=== PATIENT | female | born 1990 | race Caucasian/White ===

== ENCOUNTER 2019-04-04 06:34 | Emergency (ER) | payer SELFPAY ==
[2019-04-04] VITALS (35 sets, daily range): BP systolic 109–153; BP diastolic 67–99; PULSE 80–135; RESP 13–25; TEMP 36.6; O2SAT 96–100
[2019-04-04 07:08] LABS: Bilirubin Negative (Negative); Blood Negative (Negative); Clarity Clear (Clear); Glucose Negative (Negative); Ketones Negative (Negative); Leukocyte Esterase Negative (Negative); Nitrite Negative (Negative); Urobilinogen 0.2 EU/dL (Up TO 0.2)
--- NOTE | 2019-04-04 07:08 | NUR.NOTE ---
Nursing Note:Report to ALENA Smyth
[2019-04-04 07:10] LABS: Abs Immature Grans 0.05 k/cumm (0.0-0.09); Absolute Basophil Count 0.04 k/cumm (0.0-0.2); Absolute Lymphocyte Count 4.52 k/cumm (1.2-3.4); Absolute Monocyte Count 0.64 k/cumm (0.11-0.7); Basophils % 0.3; Eosinophils % 1.9; HGB 14.8 g/dL (12.0-15.5); Immature Grans % 0.4; Lymphocytes % 38.2; Mean Corp. HGB Concentration 33.6 g/dL (32.0-36.0); Mean Corpuscular Volume 83.2 fL (80-95); Mean Platelet Volume 10.4 fL (8.0-11.0); Monocytes % 5.4; Neutrophils % 53.8; Platelet Count 339 x1000/uL (130-400); RBC 5.29 m/cumm (4.00-5.20); RBC Distribution Width 13.4 % (11.7-14.6); White Blood Cell Count 11.83 k/cumm (4.4-10.8)
--- NOTE | 2019-04-04 07:15 | W.ED.GENAD ---
Discharge Plan Disposition Patient Disposition: HOME Condition: Improving Discharge Details Chief Complaint: Chest/Rib Clinical Impression: Thickening of wall of gallbladder with pericholecystic fluid Primary Care Provider: None,None ED Provider: Tawnya Kirby Home Meds and New Rx's Prescriptions: New amoxicillin-pot clavulanate [Augmentin] 875-125 mg tablet 1 tab PO BID 7 Days Qty: 14 RF: 0 Discharge Instructions Instructions: Cholecystitis (ED), Biliary Colic (ED) Additional Instructions: Your gallbladder was noted to be thickened with fluid around it. This can be signs indicating an infection of her gallbladder. As your pain is improving and your lab work is reassuring, you may be able to have a possible scheduled removal of your gallbladder after evaluation by surgery. Alternate Tylenol and Motrin as needed and directed for pain. Follow a low-fat diet over the next few days. Return to the hospital Saturday as directed by the radiology department for your gallbladder ultrasound which has been ordered. Follow-up with general surgeon Dr. Rubi on Saturday for further evaluation. Return immediately to the emergency department at any time if you develop fever, worsening pain, vomiting. Referrals: Lesly Rubi MD [ [facility] STAFF PHYSICIAN] - Discharge Data Discharge Date/Time-TO BE ENTERED AT DEPARTURE: 04/04/19 10:30 Discharge Physician: Tawnya Kirby Medical Decision Making <Tyler Lai DO - Last Filed: 04/05/19 01:23> This is a 28-year-old female no significant past medical history who presents today for evaluation of chest pain and epigastric pain. She has no personal history of blood clots or she does have a family history of it. No recent long trips or estrogen. Pain is tight, pressure-like, pleuritic component for her chest. Epigastric pain that is present seems to be slightly unrelated, it is reproducible on exam. Sharp in nature. Patient is tachycardic and with her family history of blood clots, d-dimer will be ordered to evaluate further. EKG does show Q3/T3. Symptoms and consistent with ACS. We will also treat with a GI cocktail for potential gastric ulcer/gastritis that could be causing her epigastric symptoms. Patient wants something for pain at this point. Will rehydrate and reassess. 7:54 AM Patient's laboratory work-up is returned relatively unremarkable. Patient has mild improvement of her symptoms of GI cocktail. Patient's d-dimer was negative, however on reassessment the patient still has continued pleuritic pain, and remains tachycardic. The family history of PE I am concerned for potential other concerning underlying pathology. We will get a CTA for further assessment. Case was discussed with my colleague Dr. Tawnya Kirby. She will this patient over her signout, please refer to her documentation for reassessment after imaging. EKG 6: 53 Rate 116, intervals normal, sinus tachycardia, inverted T wave in V1, and V3. Small Q wave is also noted in lead III. <Tawnya Kirby, DO - Last Filed: 04/05/19 16:05> 0800 --please see Dr. Lai's note for initial presentation and plan. 28-year-old female with no significant past medical history and a family history of blood clotting disorder presented with 4 days of right upper quadrant abdominal pain now resolved, and substernal chest pain and epigastric pain since last night. Patient had cardiac work-up done on arrival. EKG noted a rate of 116, sinus, with S1Q3T3 on EKG, but no acute ST ischemic changes. White blood cell count 11.83, otherwise labs unremarkable. Troponin negative. UA and ucg negative. Case endorsed with plan to follow-up on CT imaging to rule out PE. 09 --CT negative for PE but does note pericholecystic fluid and thickened gallbladder concerning for acute cholecystitis. Recommend gallbladder US. US not available on weekend day. 919 --patient reassessed -patient states pain improved after GI cocktail. Patient is tender in the epigastrium and right upper quadrant. Will call surgery. 45 -- D/w Dr. Rubi - as pain now controlled, wbc only minimally elevated and pt hemodynamically stable, ok to discharge to home with p.o. antibiotics with plan for follow-up on Saturday and possible elective cholecystectomy. Patient is agreeable to this plan. Patient given a dose of Toradol prior to discharge. She was given a prescription for Augmentin. She was placed on surgery follow-up list. A gallbladder US was ordered as outpatient for Saturday. She was advised to follow a low-fat diet, call surgery on Saturday for reevaluation and to return here at any time if symptoms worsen. Medical Records Medical records reviewed: Yes I reviewed the patient's medical records. Imaging Data Radiologic Study: Radiologist's impression: XR Chest, 2 Views Exam date and time: 04/04/2019 7:22 AM Age: 28 years old Clinical history: Shortness of breath TECHNIQUE: Imaging protocol: XR of the chest Views: 2 views. COMPARISON: No relevant prior studies available. FINDINGS: Lungs: Unremarkable. No consolidation. Pleural space: Unremarkable. No pleural effusion. No pneumothorax. Heart/Mediastinum: Unremarkable. No cardiomegaly. Bones/joints: Unremarkable. IMPRESSION: No acute findings. CT Angiography Chest With Contrast Exam date and time: 04/04/2019 7:54 AM Age: 28 years old Clinical history: Patient HX: Mid sternal chest pain, ruq pain, epigastric pain, pain since last night. Patient sts heavy feeling in chest. No recent surgeries. TECHNIQUE: Imaging protocol: Computed tomographic angiography of the chest with intravenous contrast. 3D rendering: MIP reconstructed images were created and reviewed. Radiation optimization: All CT scans at this facility use at least one of these dose optimization techniques: automated exposure control; mA and/or kV adjustment per patient size (includes targeted exams where dose is matched to clinical indication); or iterative reconstruction. Contrast material: OMNIPAQUE 350; Contrast volume: 75 ml; Contrast route: IV; COMPARISON: CR XR CHEST 2V PA LATERAL 04/04/2019 7:20 AM FINDINGS: Pulmonary arteries: No evidence of pulmonary embolus to the segmental level. Aorta: No aneurysm of the aorta. No dissection of the aorta. Lungs: Unremarkable. No consolidation. No masses. Pleural space: Unremarkable. No pneumothorax. No pleural effusion. Heart: Unremarkable. No cardiomegaly. No pericardial effusion. Gallbladder and bile ducts: Pericholecystic fluid and gallbladder wall thickness. Recommend gallbladder ultrasound for further evaluation. Lymph nodes: Unremarkable. No enlarged lymph nodes. Bones/joints: Unremarkable. No acute fracture. Soft tissues: Unremarkable. IMPRESSION: 1. No evidence of pulmonary embolus to the segmental level. 2. No aneurysm of the aorta. 3. No dissection of the aorta. 4. Pericholecystic fluid and gallbladder wall thickness. Recommend gallbladder ultrasound for further evaluation. HPI <Tyler Lai DO - Last Filed: 04/05/19 01:23> General Date/Time Provider Initiated Documentation: 04/04/19 06:40. HPI Narrative: This is a 28-year-old female with no significant past medical history who presents today for evaluation of chest pain chest tightness epigastric pain. Patient states that last 12 hours she has had tightness in the center of her chest, mild pleuritic chest pain, and epigastric pain. She has had no vomiting or diarrhea. She denies any numbness tingling or weakness. She denies any cough. The pressure and tightness started as a significant pressure and weight, and is transition to the current tightness and pleuritic pain. Epigastric pain described as sharp and stabbing in the epigastric region. Patient denies any recent long trips, surgeries or procedures. She denies any hemoptysis. She does not take exogenous estrogen. She does admit to a past family history of blood clots, but none for herself. She denies any aggravating or relieving factors. She has no other complaints at this time. Related Data Home Medications Medication Instructions Recorded Confirmed amoxicillin-pot clavulanate 1 tab PO BID 7 Days #14 tab 04/04/19 [Augmentin] Previous Rx's Medication Instructions Recorded amoxicillin-pot clavulanate 1 tab PO BID 7 Days #14 tab 04/04/19 [Augmentin] Allergies Allergy/AdvReac Type Severity Reaction Status Date / Time No Known Drug Allergies Allergy Unverified 12/01/14 10:41 General Stated Complaint: Chest/Rib FLORENTINO: 3 Review of Systems <Tyler Lai DO - Last Filed: 04/05/19 01:23> All systems reviewed & are unremarkable except as noted in HPI and below PFS <Tyler Lai DO - Last Filed: 04/05/19 01:23> Social History Smoking/Tobacco Use Status: Never Alcohol Intake: never Drug use: Never Do you feel safe at home: Yes Do you feel safe in your relationship?: Yes Exam <Tyler Lai DO - Last Filed: 04/05/19 01:23> Narrative Exam Narrative: 1.Const: Well-nourished, Well-developed, appearing stated age 2.Eyes: PERRL, no conjunctival injection, and symmetrical lids. 3.ENT: Atraumatic external nose and ears. Moist MM. Neck: Symmetric, trachea midline, No thyromegaly. 4.CVS: +S1/S2, No murmurs or gallops. Peripheral pulses 2+ and equal in all extremities. Brisk capillary refill in all extremities. 5.RESP: Unlabored respiratory effort. Clear to auscultation bilaterally. No wheezes rales or rhonchi 6.GI: Soft, Nondistended, No hepatosplenomegaly. No guarding or rebound. Mild epigastric tenderness. 7.MSK: Normocephalic/Atraumatic, Extremities w/o deformity or ttp No cyanosis or clubbing, Normal movement of all extremities. No calf tenderness. 8.Skin: Warm, Dry. No rashes or lesions. 9.Neuro: respiratory care assistant II-XII grossly intact. Sensation grossly intact, no focal neurologic deficits. 10.Psych: (AAO) x3. Appropriate mood and affect Course <Tyler Lai DO - Last Filed: 04/05/19 01:23> Vital Signs Vital signs: Vital Signs Temperature 36.6 C 04/04/19 06:40 Pulse 135 H 04/04/19 06:40 Respiratory Rate 20 04/04/19 06:40 Blood Pressure 138/99 H 04/04/19 06:40 Pulse Oximetry 98 04/04/19 06:40 Temperature 36.6 C 04/04/19 06:40 Temperature Source Rectal 04/04/19 06:40 Pulse 135 H 04/04/19 06:40 Respiratory Rate 20 04/04/19 06:40 Respiratory Effort 04/04/19 06:44 Blood Pressure 138/99 H 04/04/19 06:40 Pulse Oximetry 98 04/04/19 06:40 Oxygen Delivery Method Room Air 04/04/19 06:40 Oxygen Flow Rate 0 04/04/19 06:40 Pain Level 7 04/04/19 06:40 Sign Out <Tyler Lai DO - Last Filed: 04/05/19 01:23> Sign Out Data: Sign Out Comment: Pending CT results and reassessment. Last updated by Tyler Lai DO at 04/04/19 08:30
[2019-04-04 07:18] LABS: Absolute Eosinophil Count 0.22 k/cumm (0.0-0.7); Absolute Neutrophil Count 6.36 k/cumm (1.2-6.7)
--- NOTE | 2019-04-04 07:20 | DI.RAD_ITS ---
EXAM: XR CHEST 2V PA LATERAL INDICATION: central chest pain and SOB. COMPARISON: No exams were available for comparison TECHNIQUE: 2D digital imaging was performed. FINDINGS: The cardiac and mediastinal contours have a normal appearance. The lungs are well inflated and clear . No infiltrate, effusion or pneumothorax is seen. The spine and ribs are unremarkable as visualize d. IMPRESSION: Negative chest x-ray.
[2019-04-04 07:25] LABS: PTT Activated 26.2 sec (21.0-31.4); Prothrombin Time 9.9 sec (9.3-11.0)
[2019-04-04 07:38] LABS: ALT 12 U/L (14-59); AST 6 U/L (15-37); Alkaline Phosphatase 59 U/L (46-116); Anion Gap 11.5 mmol/L (3-11); BUN 15 mg/dL (7-18); Bilirubin, Total 0.2 mg/dL (0.2-1.0); CO2 24.5 mmol/L (21.0-32.0); CREATININE 0.74 mg/dL (0.55-1.02); Calcium 8.6 mg/dL (8.5-10.1); Chloride 103 mmol/L (98-107); Glucose 100 mg/dL (74-106); Lipase 159 U/L (73-393); NT-proBNP 20 pg/mL (<300); Potassium 3.4 mmol/L (3.5-5.1); Sodium 139 mmol/L (136-145); Total Protein 7.5 g/dL (6.4-8.2)
[2019-04-04 07:44] LABS: D-Dimer 217 ng/mlFEU (<500)
[2019-04-04 07:48] LABS: Troponin I < 0.05 ng/Ml (<0.06)
--- NOTE | 2019-04-04 08:27 | DI.VRAD_ITS ---
PROCEDURE INFORMATION: Exam: XR Chest, 2 Views Exam date and time: 04/04/2019 7:22 AM Age: 28 years old Clinical history: Shortness of breath TECHNIQUE: Imaging protocol: XR of the chest Views: 2 views. COMPARISON: No relevant prior studies available. FINDINGS: Lungs: Unremarkable. No consolidation. Pleural space: Unremarkable. No pleural effusion. No pneumothorax. Heart/Mediastinum: Unremarkable. No cardiomegaly. Bones/joints: Unremarkable. IMPRESSION: No acute findings. Dictated and Authenticated by: Michelle Gabriel MD. Ordering:YVONNE Scott MD
[2019-04-04] MEDS: Normal Saline 1,000 ML 1000 ML IV (08:37)
[2019-04-04] MEDS: Omnipaque 350 MG/ML 100 ML BTL IJ (08:55)
--- NOTE | 2019-04-04 08:55 | DI.CT_ITS ---
EXAM: CT CHEST PE CTA . CLINICAL HISTORY: Pleuritic/epigastric pain, rule out PE TECHNIQUE: Axial CT angiography was performed with multi-slice acquisition and multi-planar and/or 3 D reconstructions. 75 cc's of Omnipaque 350 were used. COMPARISON: No exams were available for comparison FINDINGS: The exam is somewhat limited by patient motion. No pulmonary emboli are seen. The lungs appear clear. There is no evidence of an infiltrate or effusion. The tracheal bronchial tree appears intact. There is apparent gallbladder wall thickening and mild gallbladder distention. No biliary dilatation or ca lcified stones are seen. The pancreas, adrenals, liver, spleen and upper poles of the kidneys are unr emarkable. IMPRESSION: No acute abnormality in the chest. There is apparent gallbladder wall thickening and questionof mi ld pericholecystic fluid. Ultrasound is recommended for further evaluation.
--- NOTE | 2019-04-04 09:08 | DI.VRAD_ITS ---
Addendum created by Michelle Gabriel MD on 04/04/2019 9:11:04 AM EST THIS REPORT CONTAINS FINDINGS THAT MAY BE CRITICAL TO PATIENT CARE. The findings were verbally communicated via telephone conference with Dr. Kirby at 9:10 AM EST on 04/04/2019. The findings were acknowledged and understood. Initial report created on 04/04/2019 9:07:51 AM EST PROCEDURE INFORMATION: Exam: CT Angiography Chest With Contrast Exam date and time: 04/04/2019 7:54 AM Age: 28 years old Clinical history: Patient HX: Mid sternal chest pain, ruq pain, epigastric pain, pain since last night. Patient sts heavy feeling in chest. No recent surgeries. TECHNIQUE: Imaging protocol: Computed tomographic angiography of the chest with intravenous contrast. 3D rendering: MIP reconstructed images were created and reviewed. Radiation optimization: All CT scans at this facility use at least one of these dose optimization techniques: automated exposure control; mA and/or kV adjustment per patient size (includes targeted exams where dose is matched to clinical indication); or iterative reconstruction. Contrast material: OMNIPAQUE 350; Contrast volume: 75 ml; Contrast route: IV; COMPARISON: CR XR CHEST 2V PA LATERAL 04/04/2019 7:20 AM FINDINGS: Pulmonary arteries: No evidence of pulmonary embolus to the segmental level. Aorta: No aneurysm of the aorta. No dissection of the aorta. Lungs: Unremarkable. No consolidation. No masses. Pleural space: Unremarkable. No pneumothorax. No pleural effusion. Heart: Unremarkable. No cardiomegaly. No pericardial effusion. Gallbladder and bile ducts: Pericholecystic fluid and gallbladder wall thickness. Recommend gallbladder ultrasound for further evaluation. Lymph nodes: Unremarkable. No enlarged lymph nodes. Bones/joints: Unremarkable. No acute fracture. Soft tissues: Unremarkable. IMPRESSION: 1. No evidence of pulmonary embolus to the segmental level. 2. No aneurysm of the aorta. 3. No dissection of the aorta. 4. Pericholecystic fluid and gallbladder wall thickness. Recommend gallbladder ultrasound for further evaluation. Dictated and Authenticated by: Michelle Gabriel MD. Ordering:YVONNE Scott MD
[2019-04-04] MEDS: Ketorolac 30 MG/ML VIAL IVP (10:05)
== END 2019-04-04 10:30 | disposition home or self-care (01) ==
PROVIDERS: Student in an Organized Health Care Education/Training Program; Emergency Provider Physician Assistant
DX: R10.13 Epigastric pain (principal); R10.11 Right upper quadrant pain; R93.2 Abnormal findings on diagnostic imaging of liver and biliary tract
CPT/HCPCS: 36416; 71275; 80053; 81025; 83690; 93005; 96361; 96374; 99285; 71046; 81003; 83880; 84484; 85025; 85379; 85610; 85730; 93010; J1885; J3490

== ENCOUNTER 2019-04-06 08:30 | Outpatient (CLI) | payer SELFPAY ==
--- NOTE | 2019-04-06 10:31 | DI.US_ITS ---
EXAM: US ABDOMEN CLINICAL HISTORY: RUQ EPIGASTRIC ABD PAIN, PERICHOLECYSTIC FLUID, GB WALL THICKENING ON CT TECHNIQUE: Ultrasound performed using standard protocol. COMPARISON: CT CHEST PE CTA from 04/04/2019 FINDINGS: Liver is normal in size and echogenicity. There is no biliary dilatation. There is a mobile stone i n the body of the gallbladder. There are 2 nonmobile stones seen in the neck of the gallbladder. Ga llbladder wall does not appear thickened. No pericholecystic fluid is visible. The patient was tende r while scanning over the gallbladder. The spleen, kidneys and aorta are unremarkable. The pancreas was not well seen. IMPRESSION: Cholelithiasis. Two non mobile stones are noted in the neck of the gallbladder. The patient was ten jenise while scanning over the gallbladder. No gallbladder wall thickening or pericholecystic fluid is visible by ultrasound.
== END 2019-04-06 08:50 ==
PROVIDERS: Visit Provider Physician Assistant
DX: R10.13 Epigastric pain (principal); K80.20 Calculus of gallbladder without cholecystitis without obstruction
CPT/HCPCS: 76700

== ENCOUNTER 2019-04-09 11:22 | Day surgery (SDC) | payer SELFPAY ==
[2019-04-09] VITALS (10 sets, daily range): BP systolic 131–161; BP diastolic 68–101; PULSE 85–105; RESP 14–25; TEMP 36.2–36.6; O2SAT 95–100
[2019-04-09] MEDS: Lactated Ringers 1,000 ML 80 ML IV (12:00)
[2019-04-09] MEDS: ceFAZolin 2 GM/50 ML BAG IVPB (12:46)
--- NOTE | 2019-04-09 12:54 | PDOC.DSDIS_ITS ---
Discharge Plan Disposition Patient Disposition: HOME Condition: Good Discharge Details Reason For Visit: ACUTE CHOLECYSTITIS Attending Provider: Lesly Rubi Primary Care Provider: None,None Home Meds and New Rx's Prescriptions: New hydrocodone-acetaminophen 5-325 mg tablet 1 tab PO Q4H PRN (Reason: pain) Qty: 14 RF: 0 Continued ibuprofen [Advil] 200 mg Tablet 200 mg PO Q6H PRNRF: 0 Discontinued amoxicillin-pot clavulanate [Augmentin] 875-125 mg tablet 1 tab PO BID 7 Days Qty: 14 RF: 0 Discharge Instructions Additional Instructions: The top bandage can be removed tomorrow. The steri strips will usually stick for about a week. When the edges start to curl up, they can be removed. It is okay to shower tomorrow, the water can run over the steri strips Do not swim or soak in a tub for two weeks Call for any concerns including fever, increased pain, vomiting, incision redness or drainage. Do not lift more than 15 pounds for two weeks. Walking and stairs are fine. Do not drive if on narcotic pain meds or if limited by pain. May use Tylenol alternating with ibuprofen for pain control. Ice is also an option. The maximum dose for Tylenol is 4000 mg/day. May use ibuprofen 800 mg every 8 hours as needed. If concerned about constipation, you may use a stool softener or milk of magnesia. Referrals: Lesly Rubi MD [ [facility] STAFF PHYSICIAN] - (Return for a postop visit in 10-14 days) Activity:: Do not lift more than 15 pounds for two weeks Shower/Bathe:: 24 hours Diet:: Low fat for two weeks Discharge Orders Discharge Orders: Discharge Order (Routine); Ordered 04/09/19 Ordered By: Lesly Rubi DS: Diagnosis Discharge Diagnosis (1) Cholecystitis, acute: Status: Acute
--- NOTE | 2019-04-09 13:36 | GB_PTH ---
PATIENT: Lydia Banerjee LOC: [facility] U#:[id number] AGE/SX: 28/F ROOM: RE04/09/[address]: Lesly Rubi MD : 1990 BED: DIS: 04/09/2019 SPEC #: [id number] RECD: 04/09/19 17:41 STATUS: HEBER REQ #: [id number] JUS: 04/09/19 13:[address]: Lesly Rubi DEPT: Surgical Specimen RECD BY: Iva Segura ENTERED: 04/09/19 17:41 SP TYPE: GB OTHR DR: None Tissues: 1 - GALLBLADDER Procedures: GROSS AND MICRO LEVEL 3 Comments: [id number]
--- NOTE | 2019-04-10 10:14 | ROE_ITS ---
DATE OF PROCEDURE: April 09, 2019 PREOPERATIVE DIAGNOSIS: Symptomatic cholelithiasis. POSTOPERATIVE DIAGNOSIS: Same. PROCEDURE: Laparoscopic cholecystectomy. SURGEON: Lesly Rubi M.D. ANESTHESIA: Local and general. INDICATIONS: This is a 28-year-old woman who presented to the ER over the weekend with a several day history of right upper quadrant and epigastric/substernal pain. She had a cardiac and PE evaluation , both of which were normal, however the chest CT showed mild thickening of the gallbladder wall. Ricky tobias had a subsequent ultrasound that showed gallstones in the neck of the gallbladder, but no perichole cystic fluid or wall thickening. Her LFT's were normal. PROCEDURE: She was placed supine on the operating and under general anesthetic was prepped and drape d sterilely. A 5 mm incision was made inferior and to the left of the umbilicus after injecting loca l anesthetic. The abdomen was entered under direct visualization with the 5 mm camera. A C02 pneumo peritoneum was begun and she was placed in reverse Trendelenburg position. The epigastric and two la teral ports were placed after injecting local anesthetic under direct visualization. The gallbladder was not acutely inflamed. The fundus was pulled up over the liver and the infundibulum retracted la terally. There were gallstones visible at the neck of the gallbladder. The peritoneum overlying the triangle of Calot was dissected free to expose the cystic duct and artery. Both were visualized goi ng directly onto the gallbladder. These were isolated. The cystic duct was palpated and no stones w ere noted within it. It was not dilated. A critical view was obtained. The cystic duct was clipped twice distally and once proximally and divided. The artery was clipped twice proximally and once di stally and divided. The gallbladder was then dissected off the liver bed with hook cautery. A clip was applied in the upper gallbladder fossa on the small vessel. The gallbladder was removed through the epigastric incision in an EndoCatch bag. Inspection of the operative site revealed no bleeding o r bile leak. The epigastric port site also exhibited no bleeding. The ports were removed and the C0 2 released. The skin at all port sites were closed with a #4-0 Monocryl subcuticular stitch. She to lerated the procedure well and was stable to recovery.
== END 2019-04-09 17:15 | disposition home or self-care (01) ==
PROVIDERS: Visit Provider Surgery
PROC: 0FT44ZZ Resection of Gallbladder, Percutaneous Endoscopic Approach (ICD-10-PCS; CPT 47562; principal; 2019-04-09 13:00)
DX: K80.10 Calculus of gallbladder with chronic cholecystitis without obstruction (principal)
CPT/HCPCS: 47562; 81025; 88304; J0131; J0690; J1100; J2250; J2405

== ENCOUNTER 2019-05-01 23:02 | Emergency (ER) | payer SELFPAY ==
[2019-05-01 23:05] VITALS: BP 138/84; PULSE 101; RESP 18; TEMP 36.6; O2SAT 100
--- NOTE | 2019-05-01 23:13 | ED.GENADUL_ITS ---
Discharge Plan Disposition Patient Disposition: HOME Condition: Good Discharge Details Chief Complaint: GenMedical Clinical Impression: Localized swelling of chest wall Primary Care Provider: None,None ED Provider: Bridger Dixon and New Rx's Prescriptions: Changed ibuprofen [Advil] 200 mg Tablet 400 mg PO Q6H PRNQty: 0 RF: 0 Discharge Instructions Additional Instructions: This may be a small hematoma of the chest wall from working out. It is not an abdominal wall hernia. Try ibuprofen and heat over the weekend, suspect this will resolve on its own. If not follow-up with primary care next week. Return to ED if increasing pain, redness, swelling, difficulty breathing, other concerns. Referrals: Primary Care Provider [Outside] Discharge Data Discharge Date/Time-TO BE ENTERED AT DEPARTURE: 05/01/19 23:25 Medical Decision Making There is definitely some localized swelling to the left lower anterior chest wall region. It is along inferior costal margin. There is no bony tenderness. There is no discrete mass. There is no evidence of infection. It is not an abdominal wall hernia. Likely related to working out and torso twist with maybe deep localized hematoma. Suspect with ibuprofen and heat over the weekend should resolve. Follow-up with primary care if it does not. Return to ED for increased pain, swelling, difficulty breathing, redness, fever, other concerns or problems. HPI General Mode of arrival: ambulatory . Date/Time Provider Initiated Documentation: 05/01/19 23:12 . Limitations to Documentation: no limitations . Information obtained by: patient and RN notes reviewed . HPI Narrative: Patient presents to ED with localized swelling below her left breast. Patient noticed this within the last couple of hours. She has a little bit of discomfort there. There is no chest pain or shortness of breath. There is no abdominal pain. She is status post laparoscopic cholecystectomy about 3 weeks ago. She was working out today including torso twisting, squats. She came in to be seen because she is unsure what the swelling is. Related Data Home Medications Medication Instructions Recorded Confirmed ibuprofen [Advil] 400 mg PO Q6H PRN #0 tab 05/01/19 05/01/19 Previous Rx's Medication Instructions Recorded ibuprofen [Advil] 400 mg PO Q6H PRN #0 tab 05/01/19 Allergies Allergy/AdvReac Type Severity Reaction Status Date / Time No Known Drug Allergies Allergy Unverified 04/24/19 09:34 General Stated Complaint: GenMedical FLORENTINO: 3 Review of Systems Narrative: As documented in HPI otherwise negative as below. Const: no fever, chills, weakness Resp: no cough, SOB, pleuritic pain CV: no CP, diaphoresis, edema, syncope GI: no abdominal pain, nausea, vomiting, diarrhea Neuro: no headache, numbness, focal weakness, confusion [facility] Surgical History (Updated 05/01/19 @ 23:13 by Bridger Dixon MD) S/P cholecystectomy (Acute) Social History Smoking/Tobacco Use Status: Never Alcohol Intake: never Drug use: Never Substance use type: does not use Do you feel safe at home: Yes Do you feel safe in your relationship?: Yes Exam Narrative Exam Narrative: Vitals: Afebrile. Normal vitals and room air pulse oximetry. Const: WDWN female in NAD. HEENT: NC/AT. Normal facial exam. Eyes: Normal conjunctiva and sclera. Neck: Supple. Trachea midline. Chest: There is localized swelling noticeable left anterior lower rib cage area. There is no discrete mass. There is no erythema. No significant tenderness. Lungs: Normal respiratory effort. Lungs are clear. Cor: RRR without murmur/gallop. GI: Soft. NT/ND. No guarding or rebound. Previous laparoscopic sites are well-healed and look fine. No abdominal wall hernia appreciated. Neuro: A+O x 3. CN grossly in tact. Good strength and no focal deficit. Ext: No C/C/E. Skin: Warm and dry without rash. Course Vital Signs Vital signs: Vital Signs Temperature 97.9 F 05/01/19 23:05 Pulse 101 H 05/01/19 23:05 Respiratory Rate 18 05/01/19 23:05 Blood Pressure 138/84 05/01/19 23:05 Pulse Oximetry 100 05/01/19 23:05 Temperature 97.9 F 05/01/19 23:05 Temperature Source Skin 05/01/19 23:05 Pulse 101 H 05/01/19 23:05 Respiratory Rate 18 05/01/19 23:05 Respiratory Effort Non-Labored 05/01/19 23:08 Blood Pressure 138/84 05/01/19 23:05 Blood Pressure Position Sitting 05/01/19 23:05 Pulse Oximetry 100 05/01/19 23:05 Oxygen Delivery Method Room Air 05/01/19 23:05 Oxygen Flow Rate 0 05/01/19 23:05 Pain Level 4 05/01/19 23:05
== END 2019-05-01 23:25 | disposition home or self-care (01) ==
PROVIDERS: Emergency Provider Emergency Medicine
DX: R22.2 Localized swelling, mass and lump, trunk (principal)
CPT/HCPCS: 99282

== ENCOUNTER 2019-05-14 14:59 | Outpatient (CLI) | payer SELFPAY ==
[2019-05-14 15:10] LABS: Bilirubin Negative (Negative); Blood Trace-intact (Negative); Clarity Clear (Clear); Glucose Negative (Negative); Ketones Negative (Negative); Leukocyte Esterase Negative (Negative); Nitrite Negative (Negative); Specific Gravity <= 1.005 (1.005-1.025); Urobilinogen 0.2 EU/dL (Up TO 0.2)
[2019-05-14 15:51] LABS: Bacteria Moderate HPF (Negative); C & S Indicated? Yes; Casts Negative LPF (Negative); Crystals Negative HPF (Negative); Epithelial Cells Few HPF (Negative); Mucus Negative (Negative); RBC 0-2 HPF (0-2); WBC 0-2 HPF (0-5)
== END 2019-05-14 15:19 ==
PROVIDERS: Visit Provider Surgery
DX: R30.0 Dysuria (principal)
CPT/HCPCS: 81003; 81015; 87086

== ENCOUNTER 2019-05-20 22:21 | Emergency (ER) | payer SELFPAY ==
[2019-05-20 22:30] VITALS: BP 145/82; PULSE 74; RESP 20; TEMP 37.1; O2SAT 99
--- NOTE | 2019-05-20 22:32 | ED.GENADUL_ITS ---
Discharge Plan Disposition Patient Disposition: HOME Condition: Stable Discharge Details Chief Complaint: Abd Prob Clinical Impression: Abdominal pain, Ovarian cyst Primary Care Provider: None,None ED Provider: Raheem Valdes Home Meds and New Rx's Prescriptions: Continued omeprazole 20 mg Tablet,Disintegrat, Delay Rel 20 mg PO DAILY RF: 0 Discharge Instructions Instructions: Ovarian Cyst (ED) Additional Instructions: call [facility] for an appointment you can take 1000mg tylenol and 600mg ibuprofen every 6 hours for pain as needed if you have severe worsening of pain or persistent vomit or fevers return to the emergency department Medical Decision Making 28 yo female who denies chronic medical problems comes in with right lower abdominal pain worsening over the past 4 or so hours. HAs had cholecystectomy in the past otherwise no other surgeries. Denies chance of being , vaginal bleeding or d/c. NO fevers or n/v. HAs pain on exam in right lower quadrant with some guarding. Given location of pain and degree of pain will obtain labs and imaging to eval for appendicitis and pancreatitis among other pathology labs unremarkable and ct shows right 3cm ovarian cyst. Her pain has resolved after toradol and has no tenderness so doubt torsion at this time. Will have her follow up with [facility] and return precautions given Differential Diagnosis Differential Diagnosis: appendicitis, ovarian cyst Medical Records Medical records reviewed: Yes I reviewed the patient's medical records. Imaging Data Radiologic Study: Attestation: I personally reviewed and interpreted this imaging study as follows: Imaging: CT Scan Radiologist's impression: 1. A 3 cm cyst or dominant follicle in the right ovary and trace amount of free fluid in the cul-de-sac. If not already accomplished, correlation with test is suggested. 2. Status post cholecystectomy without significant cholestasis. 3. A nonobstructive bowel gas pattern. 4. No CT evidence of acute appendicitis. Lab Data Lab results reviewed: Yes I reviewed the patient's lab results. HPI General Mode of arrival: ambulatory . Date/Time Provider Initiated Documentation: 05/20/19 22:24 . Limitations to Documentation: no limitations . Information obtained by: patient . History of Present Illness 28 year old F presents to the emergency department with the chief complaint of abdominal pain, described as moderate and severe, with intensity rated at 9. Quality is described as sharp, Patient reports no radiation. Patient started experiencing this hour(s) (5) and it has been constant. No relieving factors improve symptom(s), No exacerbating factors reported . Patient notes no other symptoms.. Patient did receive the following treatments prior to arrival, none Related Data Home Medications Medication Instructions Recorded Confirmed omeprazole 20 mg PO DAILY 05/20/19 05/20/19 Allergies Allergy/AdvReac Type Severity Reaction Status Date / Time No Known Drug Allergies Allergy Unverified 05/20/19 22:39 General FLORENTINO: 3 Review of Systems All systems reviewed & are unremarkable except as noted in HPI and below Constitutional Constitutional: Denies chills and Denies fever(s) Cardiovascular Cardiovascular: Denies chest pain and Denies dyspnea Respiratory Respiratory: Denies cough and Denies dyspnea Gastrointestinal Gastrointestinal: Denies nausea and Denies vomiting Genitourinary Genitourinary: Denies dysuria Integumentary/Breasts Skin/Breast: Denies rash [facility] Surgical History (Updated 05/01/19 @ 23:13 by Bridger Dixon MD) S/P cholecystectomy (Acute) Social History Smoking/Tobacco Use Status: Never Alcohol Intake: never Drug use: Never Substance use type: does not use Details: Do you feel safe at home: Yes Do you feel safe in your relationship?: Yes Exam Const General: no acute distress Orientation: alert HENMT Head: normal to inspection Ears: external ears normal General nose exam: external nose normal Mouth: moist mucous membranes Eyes General: appearance normal, both eyes and all related structures Neck Neck: normal visual inspection Resp Effort & Inspection: normal respiratory effort and able to speak in complete sentences Cardio Rate: regular rate GI Palpation: soft Skin General skin exam: no rashes or lesions noted Neuro General: alert and oriented x3 Extrem General: normal to inspection Psych Mental Status: mental status grossly normal
[2019-05-20] MEDS: Ketorolac 15 MG/ML VIAL IVP (22:40)
[2019-05-20] MEDS: Normal Saline Flush 10 ML SYR IVP (22:43)
[2019-05-20] MEDS: Normal Saline 1,000 ML 1000 ML IV (22:43)
[2019-05-20 22:49] LABS: Bilirubin Negative (Negative); Blood Negative (Negative); Clarity Clear (Clear); Glucose Negative (Negative); Ketones Negative (Negative); Leukocyte Esterase Negative (Negative); Nitrite Negative (Negative); Specific Gravity <= 1.005 (1.005-1.025); Urobilinogen 0.2 EU/dL (Up TO 0.2); pH 6.5 (5-8)
[2019-05-20 22:55] LABS: Abs Immature Grans 0.05 k/cumm (0.0-0.09); Absolute Basophil Count 0.04 k/cumm (0.0-0.2); Absolute Eosinophil Count 0.36 k/cumm (0.0-0.7); Absolute Lymphocyte Count 3.82 k/cumm (1.2-3.4); Absolute Monocyte Count 0.79 k/cumm (0.11-0.7); Basophils % 0.3; Eosinophils % 2.9; HCT 41.9 % (36.0-46.0); HGB 14.1 g/dL (12.0-15.5); Immature Grans % 0.4 %; Lymphocytes % 30.6; Mean Corp. HGB Concentration 33.7 g/dL (32.0-36.0); Mean Corpuscular Hemoglobin 28.1 pg (27.0-33.0); Mean Corpuscular Volume 83.6 fL (80-95); Mean Platelet Volume 10.8 fL (8.0-11.0); Monocytes % 6.3; Neutrophils % 59.5; Platelet Count 323 x1000/uL (130-400); RBC 5.01 m/cumm (4.00-5.20); RBC Distribution Width 13.9 % (11.7-14.6); White Blood Cell Count 12.47 k/cumm (4.4-10.8)
[2019-05-20] MEDS: Omnipaque 350 MG/ML 100 ML BTL IJ (22:59)
[2019-05-20 23:00] LABS: ALT 12 U/L (14-59); AST 7 U/L (15-37); Absolute Neutrophil Count 7.42 k/cumm (1.2-6.7); Albumin 3.8 g/dL (3.4-5.0); Alkaline Phosphatase 62 U/L (46-116); Anion Gap 10.5 mmol/L (3-11); BUN 6 mg/dL (7-18); Bilirubin, Total 0.1 mg/dL (0.2-1.0); CO2 25.5 mmol/L (21.0-32.0); CREATININE 0.61 mg/dL (0.55-1.02); Calcium 8.5 mg/dL (8.5-10.1); Chloride 104 mmol/L (98-107); Glucose 91 mg/dL (74-106); Lipase 172 U/L (73-393); Potassium 3.4 mmol/L (3.5-5.1); Sodium 140 mmol/L (136-145)
--- NOTE | 2019-05-20 23:00 | DI.CT_ITS ---
EXAM: CT ABDOMEN PELVIS W CLINICAL HISTORY: right lower abdominal pain. TECHNIQUE: Imaging Protocol: Axial computed tomography images with coronal and sagittal reformatted images were created and reviewed CONTRAST MATERIAL: Intravenous: Omnipaque 350 Contrast volume:100 mL Oral: No COMPARISON: CT CHEST PE CTA from 04/04/2019 FINDINGS: ABDOMEN: Lung Bases: Normal where visualized. Liver: Normal density. No measurable mass. Gallbladder and biliary tract: Status post cholecystectomy. No biliary ductal dilatation. Pancreas: Normal density, no abnormal calcifications or inflammatory process. Spleen: Normal. Kidneys: Normal size, contour and axis. No radiodense stones or obstructive uropathy. No masses seen. Adrenal glands: No masses seen. Abdominal Aorta: Abdominal portion non-dilated. PELVIS: Bladder: Symmetric distention, no gross wall thickening. Bowel: No obstruction or bowel wall thickening. Normal appendix. There appear to be tablets within t he bowel. No obstruction. Peritoneal cavity: Trace amount of free fluid in the cul-de-sac. This likely is physiologic. No sig nificant adenopathy. No pneumoperitoneum. Bones: Within normal limits. Reproductive organs: The uterus is unremarkable. There is a 3 centimeter cyst on the right ovary. Lymph nodes: Unremarkable. Impression: 1. 3 cm cyst on the right ovary with small amount of free fluid in the cul-de-sac. This is likely ph ysiologic. Follow-up as clinically appropriate. 2. Status post cholecystectomy. No biliary ductal dilatation. 3. No evidence of acute appendicitis. Normal appendix is visualized. DATA REPOSITORY: All CT scans at this facility are submitted to the National Radiology Data Registry (NRDR) Dose Index Registry (DIR) with the [employer] (ACR). RADIATION OPTIMIZATION: All CT scans at this facility use at least one of these dose optimization te chniques: automated exposure control; mA and/or kV adjustment per patient size (includes targeted exa ms where dose is matched to clinical indication); or iterative reconstruction.
[2019-05-20 23:03] LABS: HCG Qual (Serum) Negative
--- NOTE | 2019-05-20 23:29 | DI.VRAD_ITS ---
PROCEDURE INFORMATION: Exam: CT Abdomen And Pelvis With Contrast Exam date and time: 05/20/2019 10:58 PM Age: 28 years old Clinical indication: Abdominal pain; Localized; Right lower quadrant (rlq); Prior surgery; Surgery date: <1 month; Surgery type: Gallbladder 3+ weeks ago TECHNIQUE: Imaging protocol: Computed tomography of the abdomen and pelvis with intravenous contrast. Radiation optimization: All CT scans at this facility use at least one of these dose optimization techniques: automated exposure control; mA and/or kV adjustment per patient size (includes targeted exams where dose is matched to clinical indication); or iterative reconstruction. Contrast material: [id number]; Contrast volume: 100 ml; Contrast route: IV RAC 18G; COMPARISON: US ABDOMEN 04/06/2019 10:31 AM FINDINGS: Liver: Normal. No mass. Gallbladder and bile ducts: There are surgical clips in the gallbladder fossa. There is no evidence of intrahepatic or extrahepatic biliary ductal dilatation. Pancreas: Normal. No ductal dilation. Spleen: Normal. No splenomegaly. Adrenals: Normal. No mass. Kidneys and ureters: No renal or ureteral calculi identified. There is no hydronephrosis. Stomach and bowel: There is no evidence of small bowel or colonic obstruction. A 12 x 7 mm dense foreign bodies identified in the terminal ileum in the form of a tablet additional similar foreign bodies are seen in the ascending colon. These do not appear to be obstructing. Appendix: No evidence of appendicitis. Intraperitoneal space: See Reproductive Finding. Vasculature: Unremarkable. No abdominal aortic aneurysm. Lymph nodes: Unremarkable. No enlarged lymph nodes. Bladder: The bladder shows a normal contour and normal wall thickness. Reproductive: The uterus is appropriate for the patient's age. In the right ovary, there is a 3.0 x 2.4 cm cyst or dominant follicle causing some extrinsic compression anteriorly on the rectosigmoid as it courses through the presacral space. There is a trace amount of free fluid in the cul-de-sac. Bones/joints: Unremarkable. No acute fracture. Soft tissues: Unremarkable. IMPRESSION: 1. A 3 cm cyst or dominant follicle in the right ovary and trace amount of free fluid in the cul-de-sac. If not already accomplished, correlation with test is suggested. 2. Status post cholecystectomy without significant cholestasis. 3. A nonobstructive bowel gas pattern. 4. No CT evidence of acute appendicitis. Dictated and Authenticated by: Robert Hsu MD. Ordering:CARA Maciel MD
--- NOTE | 2019-05-20 23:34 | NUR.NOTE ---
Nursing Note: copied referal for establish pcp and an appointment for [facility] 05/20/2019
[2019-05-20 23:38] VITALS: BP 145/82; PULSE 74; RESP 20; O2SAT 99
== END 2019-05-20 23:40 | disposition home or self-care (01) ==
PROVIDERS: Emergency Provider Emergency Medicine
DX: R10.31 Right lower quadrant pain (principal); N83.201 Unspecified ovarian cyst, right side; Z90.49 Acquired absence of other specified parts of digestive tract
CPT/HCPCS: 80053; 83690; 96374; 99285; 74177; 81003; 84703; 85025; 99284; J1885; J3490

== ENCOUNTER 2020-01-02 09:24 | Emergency (ER) | payer SELFPAY ==
[2020-01-02 09:28] VITALS: BP 139/95; PULSE 90; RESP 16; TEMP 36.2; O2SAT 100
--- NOTE | 2020-01-02 09:44 | W.ED.GENAD ---
Discharge Plan Disposition Patient Disposition: HOME Condition: Stable Discharge Details Chief Complaint: EarProblem Clinical Impression: Otitis externa Primary Care Provider: None,None ED Provider: Francis Bianchi [place] Meds and New Rx's Prescriptions: New ciprofloxacin-dexamethasone [Ciprodex] 0.3-0.1 % drops,suspension 4 drp OT BID 7 Days Qty: 1 RF: 0 Continued ibuprofen 200 mg tablet 200 mg PO Q6H PRNRF: 0 Discharge Instructions Instructions: Otitis Externa (ED) Additional Instructions: Ciprodex as directed. [id number] Tylenol and/or Motrin as directed for discomfort. Please watch for new or worsening symptoms and return to the ER for any concerns. I do recommend that you continue establishing a local primary care. Discharge Data Discharge Date/Time-TO BE ENTERED AT DEPARTURE: 01/02/20 09:52 Medical Decision Making 29-year-old female presents with 5-6-day history of right ear pain, drainage, decreased hearing. Examination consistent with otitis externa. Given the TM is partially obscured, cannot determine if there may be a perforated TM. Will provide antibiotic that is otic safe. Patient has no additional questions or concerns and is comfortable discharge. We did discuss duky-jhd-oxmnwyi medications for symptomatic control. Medical Records Medical records reviewed: Yes I reviewed the patient's medical records. HPI General Mode of arrival: ambulatory. Date/Time Provider Initiated Documentation: 01/02/20 09:36. Limitations to Documentation: no limitations. Information obtained by: patient. HPI Narrative: 29-year-old female presenting with 5-day history of right ear pain, worsening. Associated with hearing loss and ear drainage, brown in nature. She denies recent illness or trauma. Denies fever, nasal congestion, sore throat, cough or shortness of breath. Has not taken pnne-mit-onkkwfj medications. Related Data Home Medications Medication Instructions Recorded Confirmed ibuprofen 200 mg tablet 200 mg PO Q6H PRN 05/26/19 01/02/20 ciprofloxacin-dexamethasone 4 drp OT BID 7 Days #1 ml 01/02/20 [Ciprodex] Previous Rx's Medication Instructions Recorded ciprofloxacin-dexamethasone 4 drp OT BID 7 Days #1 ml 01/02/20 [Ciprodex] Allergies Allergy/AdvReac Type Severity Reaction Status Date / Time No Known Drug Allergies Allergy Unverified 01/02/20 09:33 General Stated Complaint: EarProblem FLORENTINO: 4 Review of Systems Constitutional Constitutional: Denies fever(s) Eyes Eyes: Denies eye discharge ENT Ears, Nose, Mouth, and Throat: Reports ear discharge, Reports otalgia, Denies neck pain and Denies sore throat Cardiovascular Cardiovascular: Denies dyspnea Respiratory Respiratory: Denies cough and Denies dyspnea Musculoskeletal Musculoskeletal: Denies neck pain Integumentary/Breasts Skin/Breast: Denies rash [facility], 1928[facility]1983 Medical History Right lower quadrant pain (Acute) 05/20/2019. CT of pelvis showed normal appendix 3 cm functional ovarian cyst. Surgical History S/P cholecystectomy (Acute) Family History Other Breast cancer Thyroid disease Social History Smoking/Tobacco Use Status: Never Alcohol Intake: never Drug use: Never Substance use type: does not use Details: Do you feel safe at home: Yes Do you feel safe in your relationship?: Yes History History 1 Para Hx # Term Pregnancies 0 Multiple births Hx # Pregnancies Ectopic pregnancies AB induced Hx Number of Living Children AB spontaneous Exam Const General: cooperative, healthy appearing, comfortable and no acute distress Orientation: alert, awake and oriented x3 HENMT Head: normal to inspection, normocephalic and atraumatic Ears: external ears normal, TM normal on the left, mastoids normal, EAC abnormal edema and otic discharge purulent and TM abnormal other (Obscured) General nose exam: external nose normal Mouth: moist mucous membranes Throat: posterior oropharynx normal Eyes General: appearance normal, both eyes and all related structures Alignment and Position: alignment normal Periorbital: periorbital findings normal Eyelids: eyelids normal Conjunctivae: conjunctivae normal Sclera: sclerae normal Cornea: corneas normal Pupils: PERRL EOM: EOM intact bilaterally Direct ophthalmoscopy: normal light reflex Neck Neck: normal visual inspection, full ROM, no lymphadenopathy, no meningeal signs, trachea midline, supple and nontender Resp Effort & Inspection: normal respiratory effort and able to speak in complete sentences Auscultation: clear to auscultation bilaterally Cardio Rate: regular rate Rhythm: regular rhythm Skin General skin exam: no rashes or lesions noted Neuro General: patient alert, patient awake, moves all extremities and no focal motor deficits Sensory Exam: no sensory deficits noted Psych Appearance: grossly normal Mental Status: mental status grossly normal Course Vital Signs Vital signs: Vital Signs Temperature 36.2 C L 01/02/20 09:28 Pulse 90 01/02/20 09:28 Respiratory Rate 16 01/02/20 09:28 Blood Pressure 139/95 H 01/02/20 09:28 Pulse Oximetry 100 01/02/20 09:28 Temperature 36.2 C L 01/02/20 09:28 Temperature Source Temporal Artery Scan 01/02/20 09:28 Pulse 90 01/02/20 09:28 Respiratory Rate 16 01/02/20 09:28 Respiratory Effort Non-Labored 01/02/20 09:32 Blood Pressure 139/95 H 01/02/20 09:28 Blood Pressure Position Sitting 01/02/20 09:28 Pulse Oximetry 100 01/02/20 09:28 Oxygen Delivery Method Room Air 01/02/20 09:28 Oxygen Flow Rate 0 01/02/20 09:28 Pain Level 7 01/02/20 09:28
[2020-01-02 09:53] VITALS: BP 139/95; PULSE 90; RESP 16; TEMP 36.2; O2SAT 100
== END 2020-01-02 09:52 | disposition home or self-care (01) ==
PROVIDERS: Emergency Provider Physician Assistant
DX: H60.91 Unspecified otitis externa, right ear (principal)
CPT/HCPCS: 99283

== ENCOUNTER 2022-12-04 15:59 | Outpatient (REF) | payer SELFPAY | END 2022-12-04 16:00 | disposition home or self-care (01) | LOC: LBN 15:59 | PROVIDERS: Visit Provider Advanced Practice Midwife | DX: R30.0 Dysuria (principal) | CPT/HCPCS: 87086 ==

== ENCOUNTER 2023-05-22 14:54 | Outpatient (REF) | payer SELFPAY ==
--- NOTE | 2023-05-22 15:00 | PAPFT_PTH ---
PATIENT: Lydia Banerjee LOC: [facility] U#:[id number] AGE/SX: 32/F ROOM: RE05/22/[address]: Yulisa Rhodes MD : 1990 BED: DIS: 05/22/2023 SPEC #: [id number] RECD: 05/22/23 17:45 STATUS: HEBER REKat #: [id number] JUS: 05/22/23 15:[address]: Yulisa Rhodes DEPT: [facility] Cytology RECD BY: Iva Segura Tissues: 1 - CX/ENDOCX FOR PAP SMEARS Procedures: PAP THIN PREP/UVM Screening HPV DNA PROBE Comments: [id number]
== END 2023-05-22 14:55 | disposition home or self-care (01) ==
LOC: LBN 14:54
PROVIDERS: PCP Obstetrics & Gynecology; Visit Provider Obstetrics & Gynecology
DX: Z12.4 Encounter for screening for malignant neoplasm of cervix (principal)
CPT/HCPCS: 88142; 87624

== ENCOUNTER 2024-08-14 18:13 | Emergency (ER) | payer SELFPAY ==
[2024-08-14 18:45] VITALS: BP 148/91; PULSE 92; RESP 18; TEMP 36.8; O2SAT 99
[2024-08-14 19:12] LABS: Abs Immature Grans 0.02 10^3/uL (0.0-0.06); Absolute Basophil Count 0.06 10^3/uL (0.0-0.2); Absolute Eosinophil Count 0.35 10^3/uL (0.0-0.7); Absolute Lymphocyte Count 2.79 10^3/uL (1.2-3.4); Absolute Monocyte Count 0.56 10^3/uL (0.1-0.8); Absolute Neutrophil Count 4.87 10^3/uL (1.2-6.7); Basophils % 0.7 %; HCT 43.6 % (36.0-46.0); HGB 14.6 g/dL (11.2-15.7); Immature Grans % 0.2 %; Lymphocytes % 32.3 %; MCH 29.4 pg (27.0-33.0); MCHC 33.5 % (32.0-36.0); MCV 88 fL (80-95); MPV 10.2 fL (8.0-11.0); Monocytes % 6.5 %; Neutrophils % 56.3 %; Platelet Count 255 10^3/uL (130-400); RBC 4.97 10^6/uL (3.93-5.22); RDW 12.5 % (11.7-14.6); RDW-SD 40.6 fL; WBC 8.65 10^3/uL (4.4-10.8)
--- NOTE | 2024-08-14 19:15 | DI.CT_ITS ---
Exam(s) CT ABDOMEN PELVIS W EXAM: CT ABDOMEN PELVIS W CLINICAL HISTORY: left sided abdominal pain. TECHNIQUE: Imaging Protocol: Axial computed tomography images with coronal and sagittal reformatted images were created and reviewed CONTRAST MATERIAL: Intravenous: Omnipaque-350 100cc Oral: None COMPARISON: CT CT ABDOMEN PELVIS W from 05/20/2019 FINDINGS: VISUALIZED LUNG BASES: No nodules nor pleural effusions evident. ABDOMEN: There is no ascites. LIVER: There are no focal hepatic lesions evident. No dilated intrahepatic ducts. GALLBLADDER/BILIARY: The gallbladder surgically absent. CBD is not dilated. PANCREAS: No evidence of pancreatic mass nor dilatation of the pancreatic duct. SPLEEN: Spleen is not enlarged. No obvious intrasplenic lesions. Splenic and portal veins are paten t. ADRENALS: There are no significant adrenal masses. KIDNEYS:No cysts evident. No solid renal masses. No calculi nor hydronephrosis.. ABDOMINAL AORTA: Abdominal aorta is not enlarged. LYMPH NODES:There is no retroperitoneal nor paraaortic adenopathy. ABDOMINAL WALL: No evidence of significant anterior abdominal wall nor inguinal hernia. GI: There is no evidence of bowel obstruction, free air, nor abscess. PELVIS: GI: No evidence of appendicitis.No evidence of sigmoid diverticulitis. LYMPH NODES: There is no intrapelvic nor inguinal adenopathy. REPRODUCTIVE: Uterus appears age-appropriate. There is a peripherally enhancing corpus luteal cyst i n the right ovary which measures 1.9 x 1.7 cm.. There is a small amount of fluid in the cul-de-sac w hich is probably female physiologic. URINARY BLADDER: No calculi nor obvious masses evident OSSEOUS: No fractures and no significant osseous lesions. Sacroiliac joints appear unremarkable. Mild disc space narrowing L5-S1 level. No listhesis. No fac et arthropathy. No pars defects. IMPRESSION: 1. No significant acute findings in the abdomen and pelvis. 2. There is a peripherally enhancing corpus luteal cyst in the posterior aspect of the right ovary. There is a small amount of fluid in the cul-de-sac, probably female-physiologic. 3. Gallbladder surgically absent. The biliary tree is not dilated. 4. No evidence of bowel obstruction nor acute inflammatory process in the abdomen pelvis. RADIATION DOSE DELIVERED: 579.35mGy.cm Total DLP DATA REPOSITORY: All CT scans at this facility are submitted to the National Radiology Data Registry (NRDR) Dose Index Registry (DIR) with the [employer] (ACR). RADIATION OPTIMIZATION: All CT scans at this facility use at least one of these dose optimization te chniques: automated exposure control; mA and/or kV adjustment per patient size (includes targeted exa ms where dose is matched to clinical indication); or iterative reconstruction.
--- NOTE | 2024-08-14 19:24 | ED.GENADUL_ITS ---
Discharge Plan Disposition Patient Disposition: Home Condition: Stable Discharge Details Chief Complaint: Abd Prob Clinical Impression: Abdominal pain Primary Care Provider: Yulisa Rhodes ED Provider: Raheem Valdes Home Meds and New Rx's Prescriptions: No Action No Known Home Meds Discharge Instructions Additional Instructions: Your blood work and CAT scan did not show any concerning findings at this time. You can try taking a daily antacid such as omeprazole. If you are not improving within a week you can follow-up with express care if you do not have a primary care provider. If you feel significantly more ill or have new symptoms such as persistent vomiting return to the emergency department for reevaluation. HPI General Mode of arrival: ambulatory . Date/Time Provider Initiated Documentation: 08/14/24 18:33 . Limitations to Documentation: no limitations . Information obtained by: patient . History of Present Illness 33 year old F presents to the emergency department with the chief complaint of left sided abdominal pain, described as moderate, Quality is described as aching, and is localized to the left. Patient abdomen. Patient started experiencing this day(s) (3) and it has been constant. Eating worsens symptoms . Patient notes no other symptoms.. Patient did receive the following treatments prior to arrival, none Related Data Home Medications ?Medication ?Instructions ?Recorded ?Confirmed Unknown [No Known Home Meds] 12/04/22 08/14/24 Allergies Allergy/AdvReac Type Severity Reaction Status Date / Time No Known Drug Allergies Allergy no Verified 08/14/24 18:50 allergies General Stated Complaint: Abd Prob FLORENTINO: 3 Review of Systems All systems reviewed & are unremarkable except as noted in HPI and below Constitutional Constitutional: Denies chills, Denies fever(s) and Denies weakness Cardiovascular Cardiovascular: Denies chest pain and Denies dyspnea Respiratory Respiratory: Denies cough and Denies dyspnea Gastrointestinal Gastrointestinal: Reports abdominal pain, Denies nausea and Denies vomiting Neurologic Neurologic: Denies weakness Exam Const General: no acute distress Orientation: alert HENMT Head: normal to inspection Ears: external ears normal General nose exam: external nose normal Mouth: moist mucous membranes Eyes General: appearance normal, both eyes and all related structures Neck Neck: normal visual inspection Resp Effort & Inspection: normal respiratory effort and able to speak in complete sentences Cardio Rate: regular rate GI Palpation: soft and tender Skin General skin exam: no rashes or lesions noted Neuro General: patient alert and patient oriented x3 Extrem General: normal to inspection Psych Mental Status: mental status grossly normal Course Vital Signs Vital signs: Vital Signs Temperature 36.8 C 08/14/24 18:45 Pulse 92 H 08/14/24 18:45 Respiratory Rate 18 08/14/24 18:45 Blood Pressure 148/91 H 08/14/24 18:45 Pulse Oximetry 99 08/14/24 18:45 Temperature 36.8 C 08/14/24 18:45 Temperature Source Oral 08/14/24 18:45 Pulse 92 H 08/14/24 18:45 Respiratory Rate 18 08/14/24 18:45 Blood Pressure 148/91 H 08/14/24 18:45 Blood Pressure Position Sitting 08/14/24 18:45 Pulse Oximetry 99 08/14/24 18:45 Oxygen Delivery Method Room Air 08/14/24 18:45 Oxygen Flow Rate 0 08/14/24 18:45 Pain Level 8 08/14/24 18:45 Comment the pain intensifies to a 8 whenever she eats or drinks 08/14/24 18:45 Lab/Test Results Lab/Test Results: Laboratory Tests Range/Units 08/14/24 19:08 WBC (4.4-10.8) 10^3/uL 8.65 RBC (3.93-5.22) 10^6/uL 4.97 Hgb (11.2-15.7) g/dL 14.6 Hct (36.0-46.0) % 43.6 MCV (80-95) fL 88 MCH (27.0-33.0) pg 29.4 MCHC (32.0-36.0) % 33.5 RDW (11.7-14.6) % 12.5 Plt Count (130-400) 10^3/uL 255 MPV (8.0-11.0) fL 10.2 Immature Gran % % 0.2 Neutrophils % % 56.3 Lymphocytes % % 32.3 Monocytes % % 6.5 Eosinophils % % 4.0 Basophils % % 0.7 Nucleated RBC % (0.0-0.3) % 0.0 Absolute Neutrophils (1.2-6.7) 10^3/uL 4.87 Absolute Lymphocytes (1.2-3.4) 10^3/uL 2.79 Absolute Monocytes (0.1-0.8) 10^3/uL 0.56 Absolute Eosinophils (0.0-0.7) 10^3/uL 0.35 Absolute Basophils (0.0-0.2) 10^3/uL 0.06 Medical Decision Making 33-year-old female comes in with left-sided abdominal pain since Saturday. She says that when she eats or drinks anything it increases the pain. She denies any vomiting, fevers, chills, urinary symptoms or constipation or diarrhea. She is well-appearing on exam. Her abdomen is soft and nondistended. She has tenderness in the left upper and left lower quadrant no any guarding or rebound. Unclear etiology for symptoms, will check a CBC, CMP and lipase which were or dered prior to my exam as there was extended wait times in the waiting room. Will also check an hCG and obtain a CT abdomen pelvis to evaluate for entities such as diverticulitis. Labs and imaging unremarkable and patient is stable. Has minimal tenderness in the left upper abdomen. Given reassuring workup I feel she is stable for discharge. I recommended trying a daily antacid such as omeprazole. She will follow-up with [facility] if she has no PCP if she is not improving this week. Return precautions given Quality:SDOH Health Related Social Needs: No Data to Display PFSH All Active Problems (Updated 08/14/24 @ 20:44 by Raheem Valdes MD) Abdominal pain (Acute) Mass of skin of back (Acute) Medical History (Updated 08/14/24 @ 20:44 by Raheem Valdes MD) Contraception management condoms Hidradenitis axillaris (12/01/14) Surgical History S/P cholecystectomy Family History (Updated 12/04/22 @ 14:13 by Amber Orozco CNM) Other Blood clotting disorder Breast cancer Heart disease Thyroid disease Social History Smoking/Tobacco Use Status: Never Smoking risk assessment performed?: Yes Alcohol Intake: never Drug use: Never Substance use type: does not use Do you feel safe at home: Yes Do you feel safe in your relationship?: Yes History History 1 Para Hx # Term Pregnancies 0 Multiple births Hx # Pregnancies Ectopic pregnancies AB induced Hx Number of Living Children AB spontaneous
[2024-08-14 19:33] LABS: Bilirubin Negative (Negative); Blood Negative (Negative); Clarity Clear (Clear); Glucose Negative (Negative); Ketones Negative (Negative); Leukocyte Esterase Negative (Negative); Nitrite Negative (Negative); Urobilinogen 0.2 mg/dL (Up to 0.2)
[2024-08-14 19:49] LABS: ALT 18 U/L (14-59); AST 10 U/L (15-37); Albumin 4.1 g/dL (3.4-5.0); Alkaline Phosphatase 53 U/L (46-116); Anion Gap 10.8 mmol/L (3-11); BUN 11 mg/dL (7-18); Bilirubin, Total 0.3 mg/dL (0.2-1.0); CO2 24.2 mmol/L (21.0-32.0); CREATININE 0.7 mg/dL (0.55-1.02); Calcium 9.3 mg/dL (8.5-10.1); Chloride 104 mmol/L (98-107); Estimated GFR 118.51 (mL/min/1.73m2); Glucose 102 mg/dL (74-106); Lipase 61 U/L (<78); Potassium 3.9 mmol/L (3.5-5.1); Sodium 139 mmol/L (136-145); Total Protein 6.9 g/dL (6.4-8.2)
[2024-08-14] MEDS: Omnipaque 350 MG/ML 100 ML BTL 75 ML IJ (19:56)
[2024-08-14] MEDS: Normal Saline - Diluent 50 ML VIAL IJ (19:57)
[2024-08-14] MEDS: Ketorolac 15 MG/ML VIAL IVP (20:09)
--- NOTE | 2024-08-14 20:26 | DI.VRAD_ITS ---
PROCEDURE INFORMATION: Exam: CT Abdomen And Pelvis With Contrast Exam date and time: 08/14/2024 7:52 PM Age: 33 years old Clinical indication: Abdominal pain; Prior surgery; Surgery date: 6+ months; Surgery type: Gallbladder removal TECHNIQUE: Imaging protocol: Computed tomography of the abdomen and pelvis with contrast. Contrast material: OMNIPAQUE 350; Contrast volume: 75 ml; Contrast route: INTRAVENOUS (IV); COMPARISON: CT ABDOMEN PELVIS W 05/20/2019 10:56 PM FINDINGS: Lungs: The lungs are otherwise normal. Pleural spaces: There is no evidence of pneumothorax. There are no pleural effusions present. Heart: The cardiac structures are normal. Liver: There are no focal liver lesions present. There is no evidence of intrahepatic or extrahepatic biliary ductal dilation. Gallbladder and biliary ducts: There has been a cholecystectomy. Pancreas: The pancreas is normal. Spleen: The spleen is normal. Adrenal glands: The adrenal glands are normal without evidence of mass or enlargement. Kidneys and ureters: The kidneys are normal no evidence of nephrolithiasis or hydronephrosis. The ureters are normal caliber and follow a normal caliber and course. Stomach and bowel: There is no evidence of intestinal obstruction. There is mild increased colonic fecal content. The colon is nondilated. These findings suggest a mild degree of constipation. Clinical correlation recommended. Appendix: There is no evidence of appendicitis. Intraperitoneal space: There is no free intraperitoneal air. There is no evidence of free intraperitoneal or pelvic fluid. There is a small amount of free fluid present within the dependent portion of the pelvis. Vasculature: The aorta is unremarkable without evidence of significant atherosclerosis or aneurysmal disease. The peripheral arterial vascular system visualized is unremarkable. The portal venous system visualized is unremarkable. The peripheral venous vascular system visualized is unremarkable. Lymph nodes: There is no evidence of lymphadenopathy. Urinary bladder: The bladder is normal. Reproductive: The uterus is normal. Bones/joints: The skeletal structures and soft tissues show no evidence of fracture or other acute processes. Soft tissues: The extra-abdominal soft tissues are normal. IMPRESSION: No definitive explanation for patient's current clinical presentation elicited on this study. Dictated and Authenticated by: Iam Costa MD. Orderin Keisha Maciel MD
[2024-08-14 20:49] VITALS: BP 124/67; PULSE 69; RESP 18; O2SAT 97
--- NOTE | 2024-08-17 15:20 | NUR.NOTE ---
Bety Murphy, Newspaper Copy Editor [facility] called asking about the discharge instructions. I reviewed them with her and she is going to try to get the patient in to that office for follow up and establish care. Nursing Note:
== END 2024-08-14 20:50 | disposition home or self-care (01) ==
LOC: ER 21:05
PROVIDERS: Physician Assistant; Emergency Provider Emergency Medicine; PCP Obstetrics & Gynecology
DX: R10.32 Left lower quadrant pain (principal); Z90.49 Acquired absence of other specified parts of digestive tract
CPT/HCPCS: 80053; 83690; 96374; 99285; 74177; 81003; 85025; 99284; J1885; J3490

== ENCOUNTER 2025-01-10 11:31 | Emergency (ER) | payer SELFPAY ==
[2025-01-10 11:36] VITALS: BP 126/85; PULSE 77; RESP 14; TEMP 36.8; O2SAT 99
[2025-01-10 11:44] VITALS: BP 126/85; PULSE 77; RESP 14; TEMP 36.8; O2SAT 99
--- NOTE | 2025-01-10 11:51 | W.ED.GENAD ---
Discharge Plan Disposition Patient Disposition: Home Condition: Stable Discharge Details Clinical Impression: Infected cyst of skin Primary Care Provider: Kasey Ferraro ED Provider: Tyler Perrin Home Meds and New Rx's Prescriptions: New sulfamethoxazole-trimethoprim 800-160 mg tablet 1 tab PO BID 10 Days Qty: 20 0RF clindamycin phosphate 1 % gel 1 applic topical BID Qty: 30 0RF Continued pantoprazole 20 mg tablet,delayed release (DR/EC) 20 mg PO DAILY Discharge Instructions Instructions: Epidermal Cyst, Clindamycin (Topical), Sulfamethoxazole and Trimethoprim Additional Instructions: You were seen in the emergency department for your likely mildly infected cyst of your lower back/oblique. We are going to start you on an oral antibiotic called Bactrim to help this prevent from getting further infection. I am also sending you home with clindamycin as this is a treatment for hidradenitis which is in your history, it may help with this cyst, take these as directed. I am going to have our stenographer secretary send a message to your regular doctor to send a referral to the surgery practice across the street as this may need excision should antibiotics fail to resolve the tenderness. Please return for any severe increase in size and redness, fever, red streaking spreading outward from this area. Referrals: [facility] [Provider Group] Kasey Ferraro NP [Primary Care Provider, Medicine] [facility] General Date/Time Provider Initiated Documentation: 01/10/25 11:51. HPI Narrative: 34 year-old female presents to ED today by POV/ambulating with a chief complaint of small lump in her oblique/L lumbar soft tissue with onset years ago- has been monitored, but recently became mildly painful and pink around the border. Quality described as tender to touch, mildly pink, no radiation to active drainage, red streaking outward from this area. Severity is described as moderate. Palliating factors include nothing specific attempted. Provoking factors include nothing specific. Patient not anticoagulated. Related Data Home Medications ?Medication ?Instructions ?Recorded ?Confirmed pantoprazole 20 mg tablet,delayed 20 mg PO DAILY 11/02/24 01/10/25 release clindamycin phosphate 1 % topical 1 applic topical BID #30 grams 01/10/25 gel sulfamethoxazole 800 1 tab PO BID 10 days #20 tabs 01/10/25 mg-trimethoprim 160 mg tablet Previous Rx's ?Medication ?Instructions ?Recorded clindamycin phosphate 1 % topical 1 applic topical BID #30 grams 01/10/25 gel sulfamethoxazole 800 1 tab PO BID 10 days #20 tabs 01/10/25 mg-trimethoprim 160 mg tablet Allergies Allergy/AdvReac Type Severity Reaction Status Date / Time No Known Drug Allergies Allergy no Verified 01/10/25 11:43 allergies General Stated Complaint: FlankPain FLORENTINO: 3 Review of Systems All systems reviewed & are unremarkable except as noted in HPI and below Exam Narrative Exam Narrative: GENERAL APPEARANCE: Well-nourished, non-toxic, awake and alert, atraumatic, no acute distress. SKIN: Warm, pink, dry, small 0.5cm x 0.5cm mobile round nodule in the soft tissue of the L lateral lumbar/oblique area with mildy pinkness, no fluctuance, too deep for ED drainage HEAD: Normocephalic, atraumatic, normal hair distribution for gender/age. EYES: Normal conjunctiva, no exudates on lids/lashes. ENT: Nares patent, no circumoral cyanosis, no facial swelling NECK: Supple, trachea midline, painless cervical ROM. LUNGS/CHEST: Non-labored respirations, normal A/P diameter, symmetrical expansion, no chest wall deformity HEART (CV/PV): No peripheral edema, no JVD. ABDOMEN: Soft, non-distended, no guarding. MSK: Normal ROM, no swelling/deformity to bilateral UEs or LEs, moving all extremities without weakness, no cyanosis, spine midline without tenderness, normal curvature. NEURO: Mental Status AAOx4 - alert to person, place, time, events No facial droop, no forehead involvement. Motor: No focal weakness - strength 5/5 in bilateral UEs and LEs, proximal and distal, symmetric. Sensory: sensation intact to light touch globally. Gait normal: patient ambulated without ataxia into ED room. PSYCH: euthymic, cooperative, pleasant, appropriate speech Course Vital Signs Vital signs: Vital Signs Temperature 36.8 C 01/10/25 11:36 Pulse 77 01/10/25 11:36 Respiratory Rate 14 01/10/25 11:36 Blood Pressure 126/85 01/10/25 11:36 Pulse Oximetry 99 01/10/25 11:36 Temperature 36.8 C 01/10/25 11:44 Temperature Source Oral 01/10/25 11:44 Pulse 77 01/10/25 11:44 Respiratory Rate 14 01/10/25 11:44 Blood Pressure 126/85 01/10/25 11:44 Blood Pressure Position Sitting 01/10/25 11:44 Pulse Oximetry 99 01/10/25 11:44 Oxygen Delivery Method Room Air 01/10/25 11:36 Oxygen Flow Rate 0 01/10/25 11:36 Pain Level 8 01/10/25 11:36 Comment with touching and lying down on it 01/10/25 11:36 Medical Decision Making This dictation utilizes [id number] dictation software and may contain unedited grammatical errors. 34 year-old female presents to ED today by POV/ambulating with a chief complaint of small lump in her oblique/L lumbar soft tissue with onset years ago- has been monitored, but recently became mildly painful and pink around the border. Quality described as tender to touch, mildly pink, no radiation to active drainage, red streaking outward from this area. Severity is described as moderate. Palliating factors include nothing specific attempted. Provoking factors include nothing specific. Patients' medical history: Hidradenitis. Family and social history: Noncontributory. Pertinent exam findings / vital signs include small 0.5cm x 0.5cm mobile round nodule in the soft tissue of the L lateral lumbar/oblique area with mildy pinkness, no fluctuance, too deep for ED drainage. Differential / pathologies of concern include lipoma, infected sebaceous cyst. Diagnostic studies of: - None. Interventions of: - Rx for Bactrim, Rx for topical clindamycin as well, having admin staff sent a message to PCP for referral to surgery. ED Course/Assessment/Plan: 34-year-old female has a benign mass of her soft tissue of her back for many years now that has recently become tender and inflamed with mild pinkness, no wood erythema or fluctuance, it is not near the surface and too deep for an ED drainage, feels round and mobile and squishy, not fluid-filled, and do think she has mild infection around a lipoma versus an infected sebaceous cyst, starting on Bactrim to prevent any acute worsening recommend Tylenol and ibuprofen and having her PCP send a referral to general surgery for likely office visit excision. Findings not consistent with sepsis, abscess. Disposition of Infected Cyst of Skin. Patient verbalized understanding of the plan and return to ED criteria and engaged in shared decision making. Medical Records Medical records reviewed: Yes I reviewed the patient's medical records. PFSH All Active Problems (Updated 01/10/25 @ 12:04 by VALENTINO Zuniga) Infected cyst of skin (Acute) Mass of skin of back (Acute) Medical History (Updated 01/10/25 @ 12:04 by VALENTINO Zuniga) Contraception management condoms Hidradenitis axillaris (12/01/14) Surgical History (Updated 09/24/24 @ 10:21 by Julissa Anthony RN) S/P cholecystectomy (~2013) Family History (Updated 09/24/24 @ 10:24 by Julissa Anthony RN) Mother Hypertension Thyroid disease Father No problems noted. Maternal Grandmother Breast cancer Maternal Grandfather No problems noted. Other Blood clotting disorder Heart disease Social History (Updated 11/03/24 @ 10:34 by Maria Isabel Ch) Smoking/Tobacco Use Status: Never Second Hand Exposure: No Smoking risk assessment performed?: Yes Alcohol Intake: never Drug use: Never Substance use type: does not use Adopted: No Caregiver/Support person: No Household members: spouse Housing: house Communication Needs: None Education Level: high school Do you need help understanding health information?: Never current occupation: Finisher Sexually active: Yes Do you think of yourself as: straight/heterosexual Current gender identity: female What is your relationship status?: How often do you talk on the phone with friends or family?: twice per week How often do you get together with friends or relatives?: once per week How often do you attend mormon or presybeterian services?: decline to answer Do you belong to any clubs or organized social groups?: no Panel score (0-1 are the most socially isolated patients): 2 NHANES result reviewed/action taken: Yes What type of physical activity do you participate in: walking and other Details: physical job Duration: > 90 minutes/day Frequency: 5-6 times per week Special olya needs: No Seatbelt use: always Helmet use: Yes Helmet use: always Drive intox or ride w/intox independent driver: No Working smoke detector in home: Yes Carbon monox detector in home: Yes Firearms in home: No Do you feel safe at home: Yes Do you feel safe in your relationship?: Yes Victim of physical abuse: No Victim of emotional abuse: No Victim of sexual abuse: No Would you like helpful sources: No History History 1 Para Hx # Term Pregnancies 0 Multiple births Hx # Pregnancies Ectopic pregnancies AB induced Hx Number of Living Children AB spontaneous
[2025-01-10 12:20] VITALS: BP 123/76; PULSE 75; RESP 18
== END 2025-01-10 12:22 | disposition home or self-care (01) ==
LOC: ER 13:17
PROVIDERS: Emergency Provider Physician Assistant; PCP Nurse Practitioner Family
DX: L72.3 Sebaceous cyst (principal)
CPT/HCPCS: 99283 ×2